=== PATIENT | male | born 1960 | race Two or more races ===

== ENCOUNTER 2017-06-17 08:49 | Outpatient (CLI) | payer OTHER ==
[~2017-06-17] VITALS: Ht 152.4 cm; Wt 61.2 kg
[~2017-06-17 08:49] MED LIST: AMOX1TAB12 PO; KETO10TA2 PO; LEVAQUIN500 MG PO; LEVSIN/SL0.125 MG SL; TAMS0.4C; TAMS0.4C PO
== END 2017-06-17 09:10 | disposition home or self-care (01) ==
LOC: OFIC 805 08:49
DX: J31.0 Chronic rhinitis (principal); R05 Cough; H61.23 Impacted cerumen, bilateral; F17.290 Nicotine dependence, other tobacco product, uncomplicated

== ENCOUNTER 2017-07-20 12:20 | Outpatient (CLI) | payer OTHER | END 2017-07-20 12:33 | disposition home or self-care (01) | LOC: SONOGRAMA 12:20 | DX: E04.2 Nontoxic multinodular goiter (principal) ==

== ENCOUNTER 2017-12-02 09:01 | Outpatient (CLI) | payer OTHER | END 2017-12-02 09:07 | disposition home or self-care (01) | LOC: TOM 09:01 | DX: C61 Malignant neoplasm of prostate (principal); R97.20 Elevated prostate specific antigen [PSA]; N40.0 Benign prostatic hyperplasia without lower urinary tract symptoms ==

== ENCOUNTER 2017-12-08 09:35 | Outpatient (CLI) | payer OTHER | END 2017-12-08 09:55 | disposition home or self-care (01) | LOC: NUCLEAR 09:35 | DX: C61 Malignant neoplasm of prostate (principal); R97.20 Elevated prostate specific antigen [PSA]; N40.0 Benign prostatic hyperplasia without lower urinary tract symptoms | CPT/HCPCS: 78306; 78320; A9503 ==

== ENCOUNTER 2018-09-30 14:19 | Outpatient (CLI) | payer OTHER | END 2018-09-30 14:25 | disposition home or self-care (01) | LOC: RAD 501 14:19 | DX: M54.6 Pain in thoracic spine (principal) ==

== ENCOUNTER 2019-07-02 08:21 | Outpatient (CLI) | payer OTHER | END 2019-07-02 11:40 | disposition home or self-care (01) | LOC: SONO 607 08:21 → SONOGRAMA 08:21 → SONO 607 11:40 | DX: N30.01 Acute cystitis with hematuria (principal) ==

== ENCOUNTER 2024-12-08 10:20 | Emergency (ER) | payer OTHER ==
[~2024-12-08] VITALS: Ht 175.3 cm; Wt 59.9 kg
[2024-12-08] MEDS ORDERED: CEFTRIAXONE SODIUM 1,000 MG VIAL IM ONE (10:45)
[2024-12-08] MEDS ORDERED: CEFTRIAXONE SODIUM 1,000 MG VIAL ONE (10:53)
[2024-12-08] MEDS ORDERED: LIDOCAINE HCL 1% 10ML VIAL ONE (10:53)
[2024-12-08 12:12] LABS: BASO % 0.6 % (0.1-1.2); EOS # 0.20 (0.04-0.54); EOS % 3.2 % (0.7-7.0); LYMPH # 1.38 (1.18-3.74); LYMPH % 22.4 % (19.3-53.1); MEAN PLATELET VOLUME 9.70 fl (9.4-12.4); MONO # 0.61 (0.24-0.82); MONO % 9.9 % (4.7-12.5); NEUT # 3.92 (1.56-6.13); NEUT % 63.6 % (34.0-71.1); RED CELL DISTRIBUTION WIDTH 12.5 % (11.6-14.4)
[2024-12-08 12:41] LABS: ALT/SGPT 20.0 U/L (12-78); AST/SGOT 21.0 U/L (15-37); BILIRUBIN TOTAL 0.51 mg/dL (0.3-1.2); BUN CREA RATIO 15.0 (7.0-25.0); CREATININE SERUM 1.03 mg/dL (0.70-1.30); GFR 72.94; GLOBULINA 3.7 G/DL (2.4-3.5); GLUCOSE FASTING 99.0 mg/dL (65-100); OSMOLALITY SERUM 290.0 MOSM/KG (275-295)
[2024-12-08 12:47] LABS: ERYTHROCYTE SEDIMENTATION RATE 12 mm/hr (0-20)
[2024-12-08] MEDS ORDERED: CEPHALEXIN500 MG PO (14:40)
== END 2024-12-08 15:12 | disposition home or self-care (01) ==
LOC: ER 10:47
PROVIDERS: Preventive Medicine Public Health & General Preventive Medicine
DX: L03.116 Cellulitis of left lower limb (principal); Z88.8 Allergy status to other drugs, medicaments and biological substances; Z85.46 Personal history of malignant neoplasm of prostate